=== PATIENT | male | born 1960 | race American Indian/Alaskan Native ===

== ENCOUNTER 2017-02-17 08:17 | Day surgery (SDC) | payer MEDICARE, OTHER ==
[2017-02-17] MEDS ORDERED: Lactated Ringer's 500 ML IV ONE (10:07)
[2017-02-17] MEDS ORDERED: Propofol 10 mg/ml Inj (20 ML) ONE (10:08)
[2017-02-17] MEDS ORDERED: Lidocaine Hydrochloride 5 ML INJ ONE (10:08)
--- NOTE | 2017-02-17 10:10 | CP.SDSHP ---
Same Day Surgery H & P - History Proposed Procedure: Colonoscopy Pre-Op Diagnosis: cancer surveillance - Previous Medical/Surgical History Cardiac: Hypertension Misc: Other (Schizophrenia) Previous Surgical History: Colon resection 2002 - Allergies Allergies: Allergies No Known Allergies Allergy (Verified 02/17/17 09:18) - Current Medications Current Medications: reviewed, per reconciliation - Physical Exam General Appearance: wdwn nad Vital Signs: reviewed Mental Status: Alert & Oriented x3 Heart: WNL Lungs: WNL GI: WNL - {Optional Preform as Required} Abdomen: Other (midline surgical scar) - Impression Impression: colon cancer surveillance Pt. Evaluated Today:Candidate for Anesthesia & Procedure: Yes - Date & Time Date: 02/17/17 Time: 10:10 Short Stay Discharge - Short Stay Discharge Admitting Diagnosis/Reason for Visit: FAMILY HISTORY OF MALIGNANT NEOPLASM OF DIGESTIVE Disposition: HOME/ ROUTINE
[2017-02-17 16:15] VITALS: BP 132/90; PULSE 66; RESP 15; TEMP 98; O2SAT 99
== END 2017-02-17 11:20 | disposition home or self-care (01) ==
LOC: C.ENDO 08:17
PROVIDERS: ATTEND Internal Medicine Gastroenterology
DX: Z08 Encounter for follow-up examination after completed treatment for malignant neoplasm (principal); Z85.038 Personal history of other malignant neoplasm of large intestine; Z90.49 Acquired absence of other specified parts of digestive tract; I10 Essential (primary) hypertension; F20.9 Schizophrenia, unspecified
CPT/HCPCS: 45378; J2704; J7120